=== PATIENT | male | born 1955 | race African-American/Black ===

== ENCOUNTER → 2017-10-10 | Emergency (ER) | payer OTHER ==
[~2017-10-10] VITALS: Ht 193 cm; Wt 90.7 kg
[~2017-10-10] MED LIST: ALPRAZOLAM0.5 M2 ORAL; AMBIEN5 MG ORAL; ASPIR 8181 MG ORAL; BACLOFEN10 MG ORAL; CARISOPRODOL350 MG ORAL; DICLO GEL1 EACH TP; FLUOXETINE HCL20 M2 ORAL; GABAPENTIN300 MG ORAL; IBUPROFEN200 M2 ORAL; LACTULOSE20 GM/301 ORAL; LANTUS SOL100 UNIT/1 SUBQ; LIPITOR40 MG ORAL; LISINOPRIL5 MG ORAL; LORazepam 0.5mg tab ORAL ONE; OXYBUTYNIN CHLOR5 M2 PO; SENNA8.6 M2 PO; TOPROL XL100 MG ORAL; ZOFRAN ODT4 MG ORAL
[2017-10-10 14:06] VITALS: BP 142/81
--- NOTE | 2017-10-10 14:21 | Emergency Room Report ---
History of Present Illness General Chief Complaint: Dizziness Source: Patient, Family Member, EMS Present Illness HPI [id number] BIBEMS from SNF/rehab for 1 day of frontal headache, assciated with dizziness "right here" (patient points to midline forehead). Worse with moving head laterally. No associated tinnitus, nausea/vomiting. 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 Also: HLD, DM, HTN, depression, anxiety. Denies right sided weakness. Per SNF notes, on meclizine BID - unknown start date. Full code Allergies: Coded Allergies: No Known Allergies (Unverified , 10/10/17) Patient History Past Medical History: other - see HPI Past Surgical History: none Pertinent Family History: none Social History: Denies: smoking, alcohol use, drug use Immunizations: UTD Reviewed Nursing Documentation: PMH: Agreed, PSxH: Agreed Review of Systems All Other Systems: negative except mentioned in HPI Physical Exam Vital Signs Date Time Temp Pulse Resp B/P (MAP) Pulse Ox O2 Delivery O2 Flow Rate FiO2 10/10/17 14:06 59 18 142/81 98 Room Air Sp02 EP Interpretation: reviewed, normal General Appearance: normal inspection, well appearing, no apparent distress, alert, GCS 15, non-toxic Head: normocephalic, atraumatic Eyes: bilateral eye PERRL, bilateral eye EOMI, bilateral eye other - No nystagmus ENT: normal ENT inspection, hearing grossly normal, normal pharynx, no angioedema, normal voice, TMs + canals normal, uvula midline, moist mucus membranes Neck: normal inspection, full range of motion, supple, thyroid normal, no meningismus, no bony tend Respiratory: normal inspection, lungs clear, normal breath sounds, no rhonchi, no respiratory distress, no retraction, no accessory muscle use, no wheezing, speaking full sentences Cardiovascular #1: regular rate, rhythm, no edema, no JVD, normal capillary refill Gastrointestinal: normal inspection, normal bowel sounds, non tender, soft, no mass, no peritonitis, non-distended, no guarding, no hernia, no pulsatile mass Genitourinary: no CVA tenderness Musculoskeletal: normal inspection, back normal, normal range of motion, no calf tenderness, pelvis stable, Milan's Sign negative Neurologic: normal inspection, alert, oriented x3, responsive, warehouse clerk III-XII nml as tested, motor strength/tone normal, cerebellar normal, normal gait, speech normal, other - No right sided weakness Psychiatric: normal inspection, judgement/insight normal, mood/affect normal, no suicidal/homicidal ideation, no delusions Skin: normal inspection, normal color, no rash Lymphatic: normal inspection, no adenopathy Procedures Critical Care Time Critical Care Time CC time 40minutes Critical care time endorsed for this patient for suspected acute on chronic hemorrhagic CVA Critical care time includes review of laboratory tests, imaging, review of EMR, review of paperwork from SNF (if available), discussion with patient and family (if available), review of code status/POLS (if available). Critical care time also likely includes assessment of fluid status, stabilization of vital signs, treatment of HTN, d/w neurosurgery Critical care time does not include any procedures which are documented elsewhere in this EMR. Medical Decision Making Diagnostic Impression: Primary Impression: Dizziness Additional Impression: Hemorrhagic cerebrovascular accident (CVA) ER Course VSS, afebrile Labs: No leuks. H&h stable. Trop WNK ECG non-ischemic CT head: chronic NANI/MCA CVA, ?acute petechial hemorrhages cant be excluded per Rads Airway patent No acute Neuro/focal changes while in ED Spoke with [facility] Maier, accepted 420pm for transfer for HLOC Recommended keeping SBP <160 Family informed - understands reason for HLOC EKG Diagnostic Results Rate: normal Rhythm: NSR ST Segments: no acute changes ASA given to the pt in ED: No Rhythm Strip Diag. Results EP Interpretation: yes Rate: 62 Rhythm: NSR, no PVC's, no ectopy Last Vital Signs Date Time Temp Pulse Resp B/P (MAP) Pulse Ox O2 Delivery O2 Flow Rate FiO2 10/10/17 14:06 59 18 142/81 98 Room Air Status: improved Disposition: ADMITTED INPATIENT Condition: Critical CHARLOTTE PATE M.D. Oct 10, 2017 14:21
[2017-10-10 14:50] VITALS: BP 153/83
[2017-10-10 15:09] LABS: BASOPHILS % (AUTO) 1.6 % (0.0-2.0); EOSINOPHILS % (AUTO) 5.1 % (0.0-3.0); HEMOGLOBIN 14.3 G/DL (14.2-18.0); LYMPHOCYTES % (AUTO) 39.3 % (20.0-45.0); MEAN CORPUSCULAR VOLUME 92 FL (80-99); MONOCYTES % (AUTO) 8.5 % (1.0-10.0); NEUTROPHILS % (AUTO) 45.5 % (45.0-75.0); PLATELET COUNT 292 K/UL (150-450); RED BLOOD COUNT 4.67 M/UL (4.70-6.10); RED CELL DISTRIBUTION WIDTH 13.5 % (11.6-14.8); WHITE BLOOD COUNT 4.3 K/UL (4.8-10.8)
[2017-10-10 15:17] LABS: ANION GAP 2 mmol/L (5-15); BLOOD UREA NITROGEN 16 mg/dL (7-18); CALCIUM 9.4 MG/DL (8.5-10.1); CARBON DIOXIDE 33 MMOL/L (21-32); CHLORIDE 109 MMOL/L (98-107); CREATININE 0.9 MG/DL (0.55-1.30); POTASSIUM 4.1 MMOL/L (3.5-5.1); SODIUM 144 MMOL/L (136-145)
[2017-10-10 15:31] LABS: ALANINE AMINOTRANSFERASE 31 U/L (12-78); ALBUMIN 3.1 G/DL (3.4-5.0); ALBUMIN/GLOBULIN RATIO 0.7 (1.0-2.7); ALKALINE PHOSPHATASE 78 U/L (46-116); ASPARTATE AMINO TRANSFERASE 18 U/L (15-37); BILIRUBIN,TOTAL 0.3 MG/DL (0.2-1.0); CKMB 0.6 NG/ML (0.0-3.6)
--- NOTE | 2017-10-11 11:43 | Diagnostic Imaging Report ---
Indication: Dizziness Technique: Continuous helical CT scanning of the head was performed utilizing automated exposure control without intravenous contrast material. Axial and coronal reconstructions were obtained. Comparison: None CT dose: Total DLP 2375.65 mGycm; CTDI vol 70.38,70.38 mGy Findings: There is a large subacute to chronic appearing infarct in the right anterior cerebral artery/middle cerebral artery territory. There are internal foci of high attenuation which may represent calcification versus petechial hemorrhage. There is mild ex vacuo dilatation of the lateral ventricle on the right. There is no shift of the midline structures. No cisternal effacement. Likely remote lacunar infarct in the right mike. Visualized mastoid air cells and paranasal sinuses are unremarkable. No focal lesions of the bony calvarium or soft tissues of the scalp are seen. Atherosclerotic vascular calcifications noted. IMPRESSION: Large suspected subacute/chronic infarct in the right NANI/MCA territory. There are internal foci of high attenuation which may represent calcification versus petechial hemorrhage. Recommend short-term interval follow-up or correlation to prior imaging if available. MRI may be obtained to assess for acute on chronic ischemia. No evidence of midline shift This corresponds with the statrad preliminary report. The CT scanner at [facility] is accredited by the [employer] and the scans are performed using protocols designed to limit radiation exposure to as low as reasonably achievable to attain images of sufficient resolution adequate for diagnostic evaluation.
--- NOTE | 2017-10-25 16:33 | Cardiology Report ---
APPROVED REPORT EKG Measurement Heart [id number] Sinus bradycardia Otherwise normal ECG
== END | disposition short-term general hospital (02) ==
LOC: EDBD 14:13 → EMR 14:56
DX: I62.9 Nontraumatic intracranial hemorrhage, unspecified (principal)
CPT/HCPCS: 36415; 70450; 80053; 82553; 84484; 85025; 93005; 99284